=== PATIENT | male | born 1985 | race Hispanic/Latino ===

== ENCOUNTER 2024-11-17 08:20 | Emergency (ER) | payer BC, OTHER ==
[~2024-11-17] VITALS: Ht 177.8 cm; Wt 95.3 kg
[2024-11-17 09:19] LABS: INFLUENZA TYPE B Negative For Type B (NEGATIVE)
[2024-11-17 09:44] LABS: RAPID GROUP A STREP positive (NEGATIVE)
[2024-11-17 09:46] LABS: INFLUENZA TYPE A Positive For Type A (NEGATIVE)
[2024-11-17] MEDS ORDERED: AMOX500C2 PO (09:49)
[2024-11-17] MEDS ORDERED: OSEL75 PO (09:49)
--- NOTE | 2024-11-17 09:49 | ERN ---
General Chief Complaint: Flu Symptoms Stated Complaint: FLU LIKE SYMPOMS Time Seen by MD: 08:25 Source: patient History of Present Illness Initial Comments Patient is a 39-year-old male coming in to be evaluated for URI symptoms. Patient states that he has been having runny nose nasal congestion and sore throat for of days other current complaints. Allergies: Coded Allergies: No Known Drug Allergies (Unverified Allergy, Unknown, 11/17/24) Home Meds Active Scripts Oseltamivir Phosphate (Tamiflu) 75 Mg Cap, 1 CAP PO BID for 5 Days, #10 CAP 0 Refills Prov:ERICKA LIGHT MD 11/17/24 Amoxicillin (Amoxicillin) 500 Mg Capsule, 1 CAP PO TID for 10 Days, #30 CAP 0 Refills Prov:ERICKA LIGHT MD 11/17/24 Past Medical History Past Medical History: No Pertinent History Past Surgical History: Appendectomy ROS Dictation CONSTITUTIONAL: No chills, no fever, no weakness, no diaphoresis, no malaise. HEAD/FACE: No signs of trauma. EENT: No eye pain, no blurred vision, no tearing, no double vision, no ear pain, no ear discharge, no nose pain, no nasal congestion, no throat pain, no throat swelling, no mouth pain. RESPIRATORY: No cough, no orthopnea, no SOB, no stridor, no wheezing. CARDIOVASCULAR: No chest pain, no edema, no palpitations, no syncope. GASTROINTESTINAL/ABDOMINAL: No abdominal pain, no constipation, no diarrhea, no nausea, no vomiting. GENITOURINARY: No abnormal discharge, no dysuria, no frequent urination, no hematuria. No complaints of pain in the genitals. MUSCULOSKELETAL: No back pain, no gout, no joint pain, no joint swelling, no muscle pain, no muscle stiffness, no neck pain. INTEGUMENTARY: No change in color, no change in hair/nails, no dryness, no lesion, no lumps, no rash. NEUROLOGICAL/PSYCH: No anxiety, not depressed, no emotional problem, no headache, no numbness, no pre-existing deficit, no history of seizures, no tremors, no weakness. HEMATOLOGIC/LYMPHATIC: Not anemic, no history of blood clots, no apparent bleeding, no bruising, glands not swollen. All Systems Negative, Except as Noted. Physical Exam Physical Exam Dictation VITAL SIGNS: Reviewed. GENERAL APPEARANCE: Alert, oriented x3, no acute distress, obese. HEAD AND FACE: Non-traumatic. EYES: PERRL, pink conjunctivas, eyelid no trauma, anterior chamber clear. EARS: Pinnas intact and no signs of trauma or erythema. Ear canals clear and no discharge. TMs no erythema. NOSE: No discharge, no bleeding. OROPHARYNX: Mouth normal, teeth no caries, tongue pink. Pharynx clear, no erythema. Tonsils no exudates, no abscesses noted. Mucous membrane moist. NECK: Supple, non-tender, no thyromegaly, no masses, no JVD, no bruits. BREAST: Deferred. CHEST: No tenderness, no crepitus, no paradoxical movement, no retractions. LUNGS: Clear, well-ventilated, symmetric, no rales, no wheezing, no rhonchi, no stridor, good breath sounds bilaterally. HEART: Regular rate, regular rhythm, no murmur, no gallops. VASCULAR: No peripheral edema. ABDOMEN: Soft, positive bowel sounds, nondistended, no guarding, nontender, no rebound, no masses no hepatomegaly, no splenomegaly, no Longoria's sign, no hernias. RECTAL: Deferred. GENITAL: Deferred. NEUROLOGICAL: Normal speech, gross motor function intact, gross sensory function intact. MUSCULOSKELETAL: Neck nontender, full range of motion, back nontender, full range of motion. EXTREMITIES: Nontender, full range of motion. SKIN: Color pink, dry, no turgor, no rash, no lacerations, no abrasions, no contusions. LYMPHATICS: Deferred. Results Laboratory and Microbiology Lab and Micro Result Laboratory Tests Test 11/17/24 08:45 Influenza Type A Antigen Positive For Type A Influenza Type B Antigen Negative For Type B SARS-CoV-2, RNA, NAAT NEGATIVE SARS CoV-2 Group A Streptococcus Rapid positive (NEGATIVE) *A Labs Reviewed?: Yes MDM MDM: Differential diagnosis: Flu, COVID, strep Patient is a 39-year-old male coming in to be evaluated for URI symptoms. On physical exam mild congestion in the nasal and oropharyngeal area. Patient will be discharged with a diagnosis of strep as well as influenza. ED Course Orders Procedure Category Date Status Time Rapid (Group A Strep) LAB 11/17/24 Complete 08:45 Influenza Type A & B, LAB 11/17/24 Complete Rapid 08:45 Covid Rna Naat LAB 11/17/24 Complete 08:45 Acetaminophen 500mg PHA 11/17/24 In Process Tab (Tylenol 500mg T 10:00 Ibuprofen 600 Mg PHA 11/17/24 In Process Tablet (Motrin) 10:00 Current Medications Medications (Trade) Dose Ordered Sig/Zay Route PRN Reason Start Time Stop Time Status Last Admin Dose Admin Acetaminophen (TYLenol 500MG TAB) 1,000 mg ONCE ONCE PO 11/17/24 10:00 11/17/24 10:01 Ibuprofen (moTRIN) 600 mg ONCE ONCE PO 11/17/24 10:00 11/17/24 10:01 Vital Signs Date Time Temp Pulse Resp B/P (MAP) Pulse Ox O2 Delivery O2 Flow Rate FiO2 11/17/24 09:49 100.0 100 18 124/81 97 Room Air* 0 21 11/17/24 08:32 100.9 94 20 141/79 99 Room Air* 0 21 11/17/24 08:20 100.9 94 20 141/79 99 0 DX & DISP Disposition: Discharge Departure Impression: Primary Impression: Strep pharyngitis Additional Impression: Influenza Condition: Stable Scripts Methylprednisolone (Medrol) 4 Mg Tab.ds.pk 1 TAB PO AD for 6 Days, #21 TAB 0 Refills 6 on day 1 then reduce by one tablet daily until gone Prov: ERICKA LIGHT MD 11/17/24 Albuterol Sulfate (Ventolin Hfa) 90 Mcg Hfa.aer.ad 2 PUFF IH Q4HPRN PRN for wheezing for 30 Days, #18 GM 0 Refills Prov: ERICKA LIGHT MD 11/17/24 Oseltamivir Phosphate (Tamiflu) 75 Mg Cap 1 CAP PO BID for 5 Days, #10 CAP 0 Refills Prov: ERICKA LIGHT MD 11/17/24 Amoxicillin (Amoxicillin) 500 Mg Capsule 1 CAP PO TID for 10 Days, #30 CAP 0 Refills Prov: ERICKA LIGHT MD 11/17/24 Additional Instructions: FOLLOW-UP WITH PRIMARY CARE PROVIDER IN 1 TO 2 DAYS. TAKE MEDICATIONS DIRECTED HERE IN THE EMERGENCY ROOM. OKAY TO CONTINUE HOME MEDICATIONS UNLESS OTHERWISE DISCUSSED DURING YOUR VISIT IN THE EMERGENCY ROOM TODAY. RETURN TO YOUR NEAREST EMERGENCY ROOM IF SYMPTOMS WORSEN OR IF THERE IS NO IMPROVEMENT. CALL 911 IF YOU NEED IMMEDIATE ASSISTANCE. TAKE TYLENOL [id number] NEEDED AND IF NO CONTRAINDICATIONS ARE PRESENT. INCREASE ORAL HYDRATION. A WOUND CULTURE OR URINE CULTURE WAS ORDERED HERE IN THE EMERGENCY ROOM DEPARTMENT PLEASE FOLLOW-UP WITH PRIMARY CARE PROVIDER AND ADVISE THEM TO GET REPEAT PORTS FROM OUR FACILITY. IF YOU HAD ANY RICKY WRAP/SPLINTS THAT WERE APPLIED HERE, PLEASE DO NOT REMOVE THEM UNTIL YOU SEE YOUR PRIMARY CARE OR SPECIALTY. Referrals: Referrals: NONE (PCP) RHONA SOLIS MD Time of Disposition: 09:48 ERICKA LIGHT MD Nov 17, 2024 09:49
[2024-11-17 09:51] LABS: SARS-CoV-2, RNA, NAAT NEGATIVE SARS CoV-2 (NEGATIVE)
[2024-11-17] MEDS ORDERED: METH4TAB3 PO (09:54)
[2024-11-17] MEDS ORDERED: ALBU18HF7 IH (09:54)
[2024-11-17] MEDS: Solu-medROL 125MG VIAL IM ONE (10:04)
[2024-11-17] MEDS: ibuPROFEN 600 MG TABLET PO ONE (10:04)
[2024-11-17] MEDS: acetaMINOPHEN 500 MG TABLET PO ONE (10:04)
[2024-11-17] MEDS: IpraTROPium/alBUTERol SULFATE 3 ML SOLUTION IH ONE (10:05)
[2024-11-17 10:42] VITALS: BP 122/80; PULSE 89; RESP 18; TEMP 100; O2SAT 99
== END 2024-11-17 10:41 | disposition home or self-care (01) ==
LOC: EDH 08:20
DX: J10.1 Influenza due to other identified influenza virus with other respiratory manifestations (principal); J02.0 Streptococcal pharyngitis; Z20.822 Contact with and (suspected) exposure to COVID-19; Z79.899 Other long term (current) drug therapy; Z90.49 Acquired absence of other specified parts of digestive tract
CPT/HCPCS: 99283; 87635; 87880; 87804 ×2; 96372; J2919